=== PATIENT | male | born 1960 | race Caucasian/White ===

== ENCOUNTER 2016-09-18 05:37 | Day surgery (SDC) | payer MEDICARE, SELFPAY ==
[2016-09-13 10:29] LABS: HEMATOCRIT 43.4 % (40.0-51.0); HEMOGLOBIN 15.1 g/dL (13.6-17.8)
[2016-09-13 10:43] LABS: CALCIUM, SERUM 8.6 MG/DL (8.5-10.4); CHLORIDE, SERUM 104 MMOL/L (96-112); CO2 (CARBON DIOXIDE) 28 MMOL/L (24-34); CREATININE 1.16 MG/DL (0.70-1.30); GFR AFRICAN AMERICAN 82 ML/MIN (>=60); GFR NON AFRICAN AMERICAN 71 ML/MIN (>=60); GLUCOSE, SERUM 101 MG/DL (60-99); POTASSIUM, SERUM 3.9 MMOL/L (3.5-5.3); SODIUM, SERUM 139 MMOL/L (135-148)
[2016-09-13 10:44] LABS: BUN (BLOOD UREA NITROGEN) 14 MG/DL (6-23)
--- NOTE | ~2016-09-18 | OP ---
Record Of Operation [facility] [address] [place]. [address] NAME: VANDANA COREY : 64 STATUS : REG [facility]#: [id number] AGE: 56 ADM/REG DATE : 09/18/16 MR#: [id number] REPORT SERV DATE: 09/18/16 DICTATED BY: JEFFERSON VERA DATE: 09/18/16 REPORT STATUS : Draft TRANSCRIBED BY: MODL DATE: 09/18/16 DATE OF PROCEDURE: 09/18/2016 PROCEDURE: Microdirect laryngoscopy with removal of recurrent laryngeal papillomatosis. PREOPERATIVE DIAGNOSIS: Recurrent laryngeal papillomatosis. POSTOPERATIVE DIAGNOSIS: Recurrent laryngeal papillomatosis. SURGEON: Jefferson Ramsey M.D. ANESTHESIA: General endotracheal. COMPLICATION: None. FINDINGS: The patient was taken to the OR. Then was anesthetized, prepped, and draped in a standard fashion. Larynx was suspended with the laryngoscope. The microscope was brought into view. The patient was noted to have a normal epiglottis. Right and left false vocal cords were noted to be normal. The left vocal cord had recurrence of papilloma through the course of the cord and at the anterior commissure. The right true vocal cord had scarring noted and a small focus of papilloma on the arytenoid process. The CO2 laser was used but initially the papilloma was removed with a bait painter blade. Hemostasis was achieved with both CO2 laser and topical Adrenalin. The small focus on the right side was treated with CO2 laser. All lasering was done under apneic technique. Subglottis was noted to be free of any papilloma. The patient then was extubated and taken to recovery room in good condition. LORNA/KITTY Jefferson Vera M.D. / [id number] CC: Katlyn Kirkland M.D.
[~2016-09-18 05:37] MED LIST: ACET500CAP PO; ACIPHEX PO; ALLEGRA180 PO; ASAB PO; BEN25 PO; C5 PO; COUMADIN7.5 MG PO; HYDROCODONE PO; MELA3 PO; METHOC500B PO; NASACORTAQ NAS; PREV30 PO; PRILO PO; PRILOSEC OTC20 MG PO; PRIN20 PO; SINGULAIR1 PO; SUCR PO; VITC500 PO; ZANTAC150 MG PO; ZANTAC300 MG PO; ZESTORETIC PO; ZESTORETIC1 TA1 PO
[2016-09-18 07:21] LABS: INTERNATIONAL NORMAL RATI 1.4 UNITS (-)
[2016-09-18 07:22] LABS: PROTIME (NOT ORD) 16.8 SEC (12.0-14.5)
== END 2016-09-18 15:08 | disposition home or self-care (01) ==
LOC: SDC 05:37
PROVIDERS: Otolaryngology
PROC: 0CBS8ZZ Excision of Larynx, Via Natural or Artificial Opening Endoscopic (ICD-10-PCS; principal; 2016-09-18 07:15)
DX: D14.1 Benign neoplasm of larynx (principal); E66.9 Obesity, unspecified; Z68.31 Body mass index [BMI] 31.0-31.9, adult; M19.90 Unspecified osteoarthritis, unspecified site; K21.9 Gastro-esophageal reflux disease without esophagitis; I10 Essential (primary) hypertension; Z86.718 Personal history of other venous thrombosis and embolism; Z98.890 Other specified postprocedural states; Z90.89 Acquired absence of other organs; Z90.49 Acquired absence of other specified parts of digestive tract; R20.2 Paresthesia of skin; Z79.899 Other long term (current) drug therapy; Z79.01 Long term (current) use of anticoagulants
CPT/HCPCS: 80048; 85014; 85018; 85610; 88305; 93005; A9270-GY; J0690; J2250; J2405; J2710; J3010